=== PATIENT | female | born 1940 | race American Indian/Alaskan Native ===

== ENCOUNTER 2016-08-25 06:00 | Day surgery (SDC) | payer MEDICARE ==
[2016-08-25] MEDS ORDERED: ECOTRIN PO ONE (06:21)
[2016-08-25] MEDS ORDERED: NACL 0.9% 500 ML 500 ML IV SCH (07:00)
[2016-08-25 07:22] LABS: Basophils % (Auto) 0.5 % (0.0-1.8); Eosinophils % (Auto) 2.3 % (0.0-4.3); Hematocrit 36.9 % (30.3-42.9); Mean Corpuscular HGB Conc 33 % (30-34); Mean Corpuscular Hemoglobin 28 pg (28-32); Mean Corpuscular Volume 85 fl (79-97); Platelet Count 219 K/mm3 (140-440); Red Blood Count 4.33 M/mm3 (3.65-5.03); Red Cell Distribution Width 15.8 % (13.2-15.2); White Blood Count 4.2 K/mm3 (4.5-11.0)
[2016-08-25 07:34] LABS: Anion Gap 15 mmol/L; Blood Urea Nitrogen 12 mg/dL (7-17); Calcium 9.3 mg/dL (8.4-10.2); Carbon Dioxide 24 mmol/L (22-30); Chloride 106.7 mmol/L (98-107); Glucose 112 mg/dL (65-100); Potassium 3.9 mmol/L (3.6-5.0); Sodium 142 mmol/L (137-145)
[2016-08-25 07:46] LABS: INR 1.15 (0.87-1.13)
[2016-08-25] MEDS ORDERED: HEPARIN/NS 5000 UNIT/500ML(CATH LAB) 1,000 ML IR ONE (08:59)
[2016-08-25] MEDS: XYLOCAINE 2% INFILTRATI ONE ×2 (09:13→09:35)
[2016-08-25] MEDS: VERSED ONE ×3 (09:13→09:40)
[2016-08-25] MEDS: SUBLIMAZE ONE ×2 (09:13→09:35)
--- NOTE | 2016-08-25 11:53 | Short Stay Summary ---
Short Stay Documentation Date of service: 08/25/16 - History H&P: obtained from office - Allergies and Medications Current Medications: Allergies acetaminophen [From Percocet] Allergy (Verified 05/22/16 09:57) Almost passed out diclofenac sodium [From Voltaren] Allergy (Verified 02/27/16 09:06) Rash gabapentin Allergy (Verified 05/22/16 09:57) Hallucinations levofloxacin [From Levaquin] Allergy (Verified 02/27/16 09:06) Unknown lisinopril Allergy (Verified 02/27/16 09:06) Angioedema oxycodone HCl [From Percocet] Allergy (Verified 05/22/16 09:57) Almost passed out Sulfa (Sulfonamide Antibiotics) Allergy (Verified 02/27/16 09:06) Unknown Home Medications Medication Instructions Recorded Confirmed Last Taken Type EPINEPHrine (NF) [Epipen (Nf)] 0.3 mg IM PRN PRN 02/27/16 08/25/16 2 Years Ago History Folic Acid [Folvite] 1 mg PO QDAY 02/27/16 08/25/16 08/24/16 History Hydroxyzine HCl 10 mg PO DAILY PRN 02/27/16 08/25/16 08/24/16 History Aspirin [Aspirin BABY CHEW TAB] 81 mg PO QDAY #30 tab.chew 03/01/16 08/25/1607/29 Rx Famotidine [Pepcid] 40 mg PO BID #60 tablet 03/01/16 08/25/16 08/24/16 Rx Simvastatin [Zocor TAB] 20 mg PO QHS #30 tablet 03/01/16 08/25/16 08/24/16 Rx Albuterol Sulfate [Ventolin HFA] 2 puff IH Q4H PRN 05/22/16 08/25/16 08/25/16 History amLODIPine [Norvasc] 10 mg PO QHS 05/22/16 08/25/16 08/24/16 History Calcium Carbonate [Calcium] 1,200 mg PO DAILY 05/31/16 08/25/16 08/24/16 History Cholecalciferol (Vitamin D3) 6,000 unit PO DAILY 05/31/16 08/25/16 08/24/16 History [Vitamin D3] Lactobacillus Combination No.8 1 each PO DAILY 05/31/16 08/25/1617 History [Adult Probiotic] [place]-3S/Dha/Epa/Fish Oil [Fish 1 each PO DAILY 05/31/16 08/25/16 08/24/16 History Oil 1,200 mg Softgel] Vitamin E 400 unit PO DAILY 05/31/16 08/25/16 08/24/16 History Active Medications Sodium Chloride (Nacl 0.9% 500 Ml) 500 mls @ 50 mls/hr IV DIRECT TANJA Stop: 08/25/16 16:59 Last Admin: 08/25/16 07:49 Dose: 50 mls/hr - Physical exam General appearance: no acute distress Integumentary: no rash HEENT: Atraumatic Lungs: Clear to auscultation Breasts: deferred Heart: Regular rate Gastrointestinal: normal Female Genitourinary: deferred Rectal Exam: deferred Extremities: no ischemia Neurological: Normal gait - Brief post op/procedure progress note Date of procedure: 08/25/16 Pre-op diagnosis: Shortness of breath Post-op diagnosis: same Procedure: LHC, RHC, LV gram Anesthesia: MAC Findings: See report Surgeon: JIMMIE SUGGS Estimated blood loss: none Pathology: none Condition: stable - Hospital course Hospital course: Uneventful - Disposition Condition at discharge: Good Disposition: DISCHARGED TO HOME OR SELFCARE Short Stay Discharge Plan Activity: no driving until cleared by PCP (for 2 days) Weight Bearing Status: Non-Weight Bearing (for 2 days) Diet: low fat, low cholesterol, low salt
--- NOTE | 2016-08-25 13:32 | Cardiac Catherization Report ---
LEFT AND RIGHT HEART CATHETERIZATION ORDERING PHYSICIAN: Nakia Mary MD INDICATION: Shortness of breath, abnormal myocardial perfusion scan. PROCEDURES PERFORMED: 1. Selective left and right coronary angiography. 2. Right heart catheterization with hemodynamic measurements. 3. Left ventriculography. DESCRIPTION OF PROCEDURE: After obtaining written consent, the patient was draped using sterile technique. A 2% lidocaine was injected into the right groin. Using micropuncture technique, a 6-Maldivian vascular sheath was inserted into the right common femoral artery. An 8-Maldivian vascular sheath was inserted into the right common femoral vein. A JL4 catheter was used to selectively engage the left coronary artery. A JR4 catheter was used to selectively engage the right coronary artery. A JR4 catheter was used to hand inject the left ventriculogram. A 7-Maldivian Addison-Ac catheter was used to measure right-sided hemodynamics and perform an oxygen saturation run. No complications occurred during the procedure. Hemostasis was achieved at the end of the procedure using a 6-Maldivian Angio-Seal device. ESTIMATED BLOOD LOSS: Minimal. SPECIMEN REMOVED: None. FINDINGS: 1. Hemodynamics: Mean pulmonary capillary wedge pressure was 9 mmHg. 2. The pulmonary artery systolic pressure was 32 mmHg with a diastolic pressure of 15 mmHg. The mean pulmonary artery pressure is 24 mmHg. 3. The right ventricular systolic pressure is 32 mmHg with a right ventricular end-diastolic pressure of 10 mmHg. 4. The mean right arterial pressure is 7 mmHg. 5. The aortic pressure is 112/60. The left ventricular systolic pressure is 114 mmHg with an EDP of 8 mmHg. 6. The superior vena cava saturation was 67%, pulmonary artery saturation 70%, right ventricular saturation 68%, right atrial saturation was 69%, aortic saturation 95%. 7. Makenzie cardiac output 6.27 liters per minute and a cardiac index of 3.14 L per minute per meter square. CARDIAC STRUCTURES: The left ventricle is normal in size and systolic function with the left ventricular ejection fraction estimated at 60%. CORONARY ANATOMY: 1. This is a right dominant circulation. 2. The left main is angiographically normal. 3. The LAD is angiographically normal. 4. The left circumflex artery is angiographically normal. 5. The right coronary artery is angiographically normal. IMPRESSION: 1. Angiographically normal coronary arteries. 2. Normal left ventricular size and systolic function. 3. Normal left and right-sided filling pressures. 4. Normal pulmonary artery pressure. 5. Normal cardiac output. 6. No evidence of intracardiac shunt. RECOMMENDATIONS: Follow up with referring appraisal technician. JOB# [id number] TATYANA/MIC
[2016-08-25 16:20] VITALS: BP 122/78
== END 2016-08-25 14:40 | disposition home or self-care (01) ==
LOC: OPU 06:00
PROVIDERS: ATTEND Internal Medicine
DX: R94.39 Abnormal result of other cardiovascular function study (principal); R06.02 Shortness of breath; I10 Essential (primary) hypertension; Z85.3 Personal history of malignant neoplasm of breast; Z87.891 Personal history of nicotine dependence; Z98.890 Other specified postprocedural states; Z82.49 Family history of ischemic heart disease and other diseases of the circulatory system
CPT/HCPCS: 36415; 80048; 85025; 85610; 85730; 93005; 93010; 93460; C1760; C1769; C1894; J1644; J2250; J3010; J7040; Q9967

== ENCOUNTER 2021-03-24 10:54 | Outpatient (CLI) | payer MEDICARE ==
--- NOTE | 2021-03-28 09:17 | Mammography Report ---
DIGITAL SCREENING MAMMOGRAM WITH CAD, 03/25/2021 CLINICAL INFORMATION / INDICATION: Routine screening mammography. The patient has a personal history of right breast cancer treated with lumpectomy. TECHNIQUE: Digital bilateral 2D mammography was obtained in the craniocaudal and mediolateral obliqu e projections. This examination was interpreted with the benefit of Computer-Aided Detection analysis . COMPARISON: 02/12/2020, 01/13/2019, 12/16/2017, 12/25/2016 FINDINGS: Breast Density: There are scattered areas of fibroglandular density. No dominant mass, suspicious calcifications, or architectural distortion in either breast. Stable postlumpectomy findings are again noted in the right breast. There has been no significant int erval change. IMPRESSION: No mammographic evidence of malignancy. Follow up recommendation: Routine yearly BI-RADS Category 2: Benign. A "normal" or negative report should not discourage follow up or biopsy of a clinically significant f inding. A written summary of these findings will be mailed to the patient. The patient will be entered into a mammography reporting system which will generate a reminder letter for the patient's next appointmen t at the appropriate interval. The [employer] recommends yearly mammograms starting at age 40 and continuing as l wilberto as a woman is in good health. Breast MRI is recommended for women with an approximate 20-25% or greater lifetime risk of breast cancer, including women with a strong family history of breast or ova oscar cancer or who have been treated for Hodgkin's disease. Signer Name: Kati Carvalho MD Signed: 03/28/2021 9:12 AM Workstation Name: [employer]
== END 2021-03-24 10:55 | disposition home or self-care (01) ==
LOC: SPVWC 10:54
PROVIDERS: ATTEND Surgery
DX: Z12.31 Encounter for screening mammogram for malignant neoplasm of breast (principal)
CPT/HCPCS: 77067